=== PATIENT | male | born 1975 | race African-American/Black ===

== ENCOUNTER 2016-11-20 14:10 | Emergency (ER) | payer SELFPAY ==
[~2016-11-20] VITALS: Ht 177.8 cm; Wt 113.0 kg
[2016-11-20] MEDS ORDERED: SODIUM CHLORIDE 0.9% 1,000 ML IV ONE (14:29)
[2016-11-20] MEDS ORDERED: LORAZEPAM 2MG/ML CPJ IV ONE (14:30)
[2016-11-20 14:32] VITALS: BP 152/92
[2016-11-20] MEDS ORDERED: MIDAZOLAM HCL 2 MG/2 ML VIAL IM ONE (14:45)
== END 2016-11-20 15:15 | disposition left against medical advice (07) ==
LOC: ER 14:17
DX: G93.40 Encephalopathy, unspecified (principal); Z53.21 Procedure and treatment not carried out due to patient leaving prior to being seen by health care provider
CPT/HCPCS: 93005; 99283; J2060; J7030

== ENCOUNTER 2018-05-07 01:38 | Inpatient (IN) | payer MEDICAID, OTHER ==
[2018-05-07] VITALS (22 sets, daily range): BP systolic 92–150; BP diastolic 65–121
[~2018-05-07] VITALS: Ht 180.3 cm; Wt 128.4 kg
[2018-05-07] MEDS ORDERED: SODIUM CHLORIDE 0.9% 1,000 ML IV ONE ×4 (02:45→03:45)
[2018-05-07 02:52] LABS: HEMATOCRIT. 54.6 % (42.0-52.0); HEMOGLOBIN. 16.7 g/dL (14.0-18.0); MEAN CORPUSCULAR HEMOGLOBIN 27.1 pg (28.0-32.0); MEAN CORPUSCULAR VOLUME 88.6 fL (80.0-94.0); MEAN PLATELET VOLUME 11.7 fl (7.4-10.4); PLATELET 269 x1000/uL (130-400); RED BLOOD CELL COUNT 6.16 mill/uL (4.7-6.1); RED CELL DISTRIBUTION WIDTH 15.9 % (11.6-14.6)
[2018-05-07 02:56] LABS: CHLORIDE 100 mEq/L (98-107)
[2018-05-07 03:00] LABS: ETHANOL BLOOD < 10 mg/dL
[2018-05-07 03:05] LABS: CREATINE KINASE 112 IU/L (39-308)
[2018-05-07 03:07] LABS: CREATINE KINASE MB FRACTION < 1.0 ng/mL (0.5-3.6)
[2018-05-07] MEDS ORDERED: INSULIN REGULAR (DRIP) 100 UNITS in SODIUM CHLORIDE 0.9% 100 ML IV ONE (03:30)
[2018-05-07] MEDS ORDERED: INSULIN REGULAR (DRIP) 100 UNITS in SODIUM CHLORIDE 0.9% 100 ML IV NR (03:30)
[2018-05-07 03:41] LABS: CLARITY URINE CLEAR (CLEAR); COLOR URINE YELLOW (YELLOW); KETONES URINE 1+ (NEGATIVE); LEUKOCYTE ESTERASE URINE NEGATIVE (NEGATIVE); NITRITE URINE NEGATIVE (NEGATIVE); OCCULT BLOOD URINE 1+ (NEGATIVE); PROTEIN URINE 1+ (NEGATIVE); SPECIFIC GRAVITY URINE 1.026 (1.005-1.030); UROBILINOGEN URINE 0.2 E.U./dL (0.2-1.0)
[2018-05-07 04:39] LABS: BETA HYDROXYBUTYRATE 11.4 mMol/L (0.0-0.3)
[2018-05-07 04:39] LABS: *BARBITURATES SCREEN URINE NEGATIVE (NEGATIVE); *BENZODIAZEPINES SCREEN URINE NEGATIVE (NEGATIVE)
[2018-05-07 04:40] LABS: *COCAINE SCREEN URINE NEGATIVE (NEGATIVE)
[2018-05-07 05:10] LABS: METHADONE URINE SCREEN NEGATIVE (NEGATIVE); OPIATES URINE SCREEN NEGATIVE (NEGATIVE)
[2018-05-07 05:11] LABS: *AMPHETAMINES SCREEN URINE NEGATIVE (NEGATIVE); CANNABINOID URINE SCREEN PRESUMTIVE POSITIVE (NEGATIVE); PHENCYCLIDINE URINE SCREEN PRESUMTIVE POSITIVE (NEGATIVE)
[2018-05-07 05:14] LABS: PLATELET ESTIMATE NORMAL
[2018-05-07] MEDS ORDERED: DEXTROSE 50% WATER 50ML SYRINGE IV PRN ×2 (05:45)
[2018-05-07] MEDS ORDERED: ZOSYN PER PHARMACY XX SCH (06:15)
[2018-05-07] MEDS: SODIUM CHLORIDE 0.9% 1,000 ML IV SCH ×2 (06:43→10:57)
[2018-05-07] MEDS: BLOOD SUGAR DIAGNOSTIC STRIP TEST SCH ×17 (06:44→23:42)
[2018-05-07 08:14] LABS: BG BASE EXCESS -9.5 mmol/L (-2.0-2.0); BG CARBOXYHEMOGLOBIN 0.8 % (0.5-1.5); BG FRACTION INSPIRED OXYGEN 21; BG HCO3 ACT 13.7 mmol/L (22.0-26.0); BG METHEMOGLOBIN 0.4 % (0.0-1.5); BG OXYHEMOGLOBIN 94.8 % (94.0-97.0); BG PCO2 25.1 mmHg (35.0-45.0); BG PH 7.355 (7.350-7.450); BG SAMPLE SITE RIGHT RADIAL; BG TOTAL HEMOGLOBIN 17.5 g/dL (12.0-18.0); BG VENT MODE ROOM AIR
[2018-05-07 09:25] LABS: PHOSPHORUS 1.5 mg/dL (2.5-4.9)
[2018-05-07] MEDS: ENOXAPARIN 30MG/0.3ML SYR SUBCUT SCH ×2 (09:51→20:17)
[2018-05-07] MEDS: INSULIN REGULAR (DRIP) 100 UNITS in SODIUM CHLORIDE 0.9% 99 ML IV SCH ×3 (10:49→20:52)
[2018-05-07] MEDS: PIPERACILLIN/TAZ 2.25G PREMIX 50 ML IV SCH ×4 (12:00→23:45)
[2018-05-07] MEDS ORDERED: SODIUM CHLORIDE 0.45% 1,000 ML IV SCH (12:00)
[2018-05-07] MEDS ORDERED: DEXT 5%/0.45% NACL KCL 20MEQ/L 1,000 ML IV SCH (17:30)
[2018-05-07] MEDS: DEXTROSE 5% WATER 1,000 ML IV SCH (22:24)
[2018-05-07] MEDS ORDERED: POTASSIUM CHLORIDE INJ 40 MEQ in DEXT 5% WATER 500 ML IV NR (22:30)
[2018-05-08] VITALS (46 sets, daily range): BP systolic 89–159; BP diastolic 46–107
[2018-05-08] MEDS: BLOOD SUGAR DIAGNOSTIC STRIP TEST SCH ×9 (00:50→22:00)
[2018-05-08] MEDS: PIPERACILLIN/TAZ 2.25G PREMIX 50 ML IV SCH ×4 (05:41→23:29)
[2018-05-08] MEDS: INSULIN REGULAR (DRIP) 100 UNITS in SODIUM CHLORIDE 0.9% 99 ML IV SCH (05:41)
[2018-05-08] MEDS: DEXTROSE 5% WATER 1,000 ML IV SCH (06:22)
[2018-05-08] MEDS: SODIUM CHLORIDE 0.45% 1,000 ML IV SCH ×2 (08:09→15:37)
[2018-05-08] MEDS: ENOXAPARIN 30MG/0.3ML SYR SUBCUT SCH ×2 (08:13→22:36)
[2018-05-08] MEDS ORDERED: DEXTROSE 50% WATER 50ML SYRINGE IV PRN (14:30)
[2018-05-08] MEDS: INSULIN LISPRO 100 UNITS/ML SUBCUT SCH ×2 (15:37→22:38)
[2018-05-08] MEDS ORDERED: POTASSIUM CHLORIDE INJ 40 MEQ in DEXT 5% WATER 250 ML IV ONE (16:00)
[2018-05-08] MEDS ORDERED: POTASSIUM CHLORIDE 20MEQ TABLET SR PO NR (18:00)
[2018-05-08] MEDS ORDERED: INSULIN GLARGINE UD 100 UNITS/ML SYR SUBCUT SCH (22:00)
[2018-05-09] VITALS (36 sets, daily range): BP systolic 97–165; BP diastolic 27–123
[2018-05-09] MEDS ORDERED: INSULIN GLARGINE UD 100 UNITS/ML SYR SUBCUT NR
[2018-05-09] MEDS: SODIUM CHLORIDE 0.45% 1,000 ML IV SCH ×2 (03:30→09:19)
[2018-05-09 06:19] LABS: BASOPHILS % 1.5 % (0.0-2.0); EOSINOPHILS % 4.3 % (0.0-5.0); HEMOGLOBIN. 14.3 g/dL (14.0-18.0); LYMPHOCYTES % 11.9 % (20.0-50.0); MEAN CORPUSCULAR HEMOGLOBIN 26.7 pg (28.0-32.0); MEAN CORPUSCULAR VOLUME 84.3 fL (80.0-94.0); MEAN PLATELET VOLUME 10.8 fl (7.4-10.4); MONOCYTES % 10.5 % (2.0-8.0); NEUTROPHILS % 71.8 % (40.0-76.0); PLATELET 128 x1000/uL (130-400); RED BLOOD CELL COUNT 5.34 mill/uL (4.7-6.1); RED CELL DISTRIBUTION WIDTH 15.5 % (11.6-14.6)
[2018-05-09] MEDS: BLOOD SUGAR DIAGNOSTIC STRIP TEST SCH ×11 (07:28→18:00)
[2018-05-09] MEDS ORDERED: DEXTROSE 50% WATER 50ML SYRINGE IV PRN ×2 (08:00)
[2018-05-09] MEDS: ENOXAPARIN 30MG/0.3ML SYR SUBCUT SCH ×2 (08:42→22:40)
[2018-05-09] MEDS: INSULIN REGULAR (DRIP) 100 UNITS in SODIUM CHLORIDE 0.9% 99 ML IV SCH ×3 (08:53→17:51)
[2018-05-09] MEDS: THIAMINE HCL 100MG TABLET PO SCH (08:58)
[2018-05-09] MEDS: FOLIC ACID 1MG TABLET PO SCH (08:58)
[2018-05-09] MEDS: MULTIVITAMINS,THER W-MINERALS TABLET PO SCH (08:58)
[2018-05-09 10:06] LABS: T4 FREE 0.79 ng/dL (0.76-1.46)
[2018-05-09] MEDS: INSULIN GLARGINE UD 100 UNITS/ML SYR SUBCUT SCH ×2 (11:10→22:41)
[2018-05-09] MEDS: PIPERACILLIN/TAZ 2.25G PREMIX 50 ML IV SCH ×2 (11:13→17:41)
[2018-05-09] MEDS ORDERED: LEVA15HF6 IH (13:16)
[2018-05-09] MEDS ORDERED: ARIP10TA16 PO (13:16)
[2018-05-09] MEDS ORDERED: FLUO1POW12 PO (13:16)
[2018-05-09] MEDS ORDERED: GLIP10TA10 PO (13:24)
[2018-05-09] MEDS ORDERED: FLUO-124 PO (13:24)
[2018-05-09] MEDS ORDERED: SIMV20TA6 PO (13:24)
[2018-05-09] MEDS ORDERED: FURO20TA4 PO (13:24)
[2018-05-09] MEDS ORDERED: METF-416 PO (13:24)
[2018-05-09 14:17] LABS: FOLIC ACID (FOLATE) SERUM 17.3 ng/mL (>5.38)
[2018-05-09] MEDS: DEXT 5%/0.45% NACL 1000ML 1,000 ML IV SCH (16:53)
[2018-05-10] VITALS (32 sets, daily range): BP systolic 105–183; BP diastolic 32–100
[2018-05-10] MEDS: PIPERACILLIN/TAZ 2.25G PREMIX 50 ML IV SCH ×4 (00:15→17:37)
[2018-05-10] MEDS: DEXT 5%/0.45% NACL 1000ML 1,000 ML IV SCH (03:00)
[2018-05-10] MEDS: INSULIN REGULAR (DRIP) 100 UNITS in SODIUM CHLORIDE 0.9% 99 ML IV SCH (05:26)
[2018-05-10] MEDS ORDERED: DEXTROSE 50% WATER 50ML SYRINGE IV PRN ×2 (10:15→12:30)
[2018-05-10] MEDS: FOLIC ACID 1MG TABLET PO SCH (10:55)
[2018-05-10] MEDS: THIAMINE HCL 100MG TABLET PO SCH (10:55)
[2018-05-10] MEDS: MULTIVITAMINS,THER W-MINERALS TABLET PO SCH (10:55)
[2018-05-10] MEDS: ENOXAPARIN 30MG/0.3ML SYR SUBCUT SCH ×2 (10:56→22:02)
[2018-05-10] MEDS: INSULIN GLARGINE UD 100 UNITS/ML SYR SUBCUT SCH ×2 (10:57→22:01)
[2018-05-10] MEDS ORDERED: BLOOD SUGAR DIAGNOSTIC STRIP TEST SCH (11:30)
[2018-05-10] MEDS ORDERED: INSULIN LISPRO 100 UNITS/ML SUBCUT SCH ×2 (12:00→12:30)
[2018-05-10] MEDS: BLOOD SUGAR DIAGNOSTIC STRIP TEST SCH ×3 (12:30→21:00)
[2018-05-10] MEDS ORDERED: DEXTROSE 5% WATER 1,000 ML IV SCH (12:45)
[2018-05-10] MEDS: INSULIN LISPRO 100 UNITS/ML SUBCUT SCH ×4 (12:55→22:08)
[2018-05-11] VITALS (41 sets, daily range): BP systolic 104–164; BP diastolic 50–109
[2018-05-11] MEDS: PIPERACILLIN/TAZ 2.25G PREMIX 50 ML IV SCH ×5 (00:16→23:50)
[2018-05-11] MEDS: INSULIN LISPRO 100 UNITS/ML SUBCUT SCH ×6 (06:51→21:09)
[2018-05-11] MEDS: BLOOD SUGAR DIAGNOSTIC STRIP TEST SCH ×4 (06:52→21:05)
[2018-05-11 07:08] LABS: CHLORIDE 121 mEq/L (98-107); HEMATOCRIT. 38.8 % (42.0-52.0); HEMOGLOBIN. 12.6 g/dL (14.0-18.0); MEAN CORPUSCULAR HEMOGLOBIN 27.2 pg (28.0-32.0); MEAN CORPUSCULAR VOLUME 83.9 fL (80.0-94.0); MEAN PLATELET VOLUME 10.8 fl (7.4-10.4); PLATELET 109 x1000/uL (130-400); RED BLOOD CELL COUNT 4.63 mill/uL (4.7-6.1); RED CELL DISTRIBUTION WIDTH 15.2 % (11.6-14.6)
[2018-05-11 07:15] LABS: PHOSPHORUS 3.5 mg/dL (2.5-4.9)
[2018-05-11] MEDS: THIAMINE HCL 100MG TABLET PO SCH (09:17)
[2018-05-11] MEDS: MULTIVITAMINS,THER W-MINERALS TABLET PO SCH (09:17)
[2018-05-11] MEDS: FOLIC ACID 1MG TABLET PO SCH (09:17)
[2018-05-11] MEDS: ENOXAPARIN 30MG/0.3ML SYR SUBCUT SCH ×2 (09:18→21:11)
[2018-05-11] MEDS: INSULIN GLARGINE UD 100 UNITS/ML SYR SUBCUT SCH (09:19)
[2018-05-11 12:55] LABS: PLATELET ESTIMATE SLIGHTLY DECREASED
[2018-05-11 13:41] LABS: CHLORIDE 121 mEq/L (98-107)
[2018-05-11] MEDS ORDERED: INSULIN LISPRO 100 UNITS/ML SUBCUT SCH (17:00)
[2018-05-11] MEDS ORDERED: INSULIN GLARGINE UD 100 UNITS/ML SYR SUBCUT SCH (22:00)
[2018-05-12] VITALS (8 sets, daily range): BP systolic 113–136; BP diastolic 60–80
[2018-05-12] MEDS: PIPERACILLIN/TAZ 2.25G PREMIX 50 ML IV SCH ×2 (05:36→13:05)
[2018-05-12 06:29] LABS: HEMATOCRIT. 37.3 % (42.0-52.0); HEMOGLOBIN. 12.1 g/dL (14.0-18.0); MEAN CORPUSCULAR HEMOGLOBIN 27.2 pg (28.0-32.0); MEAN CORPUSCULAR VOLUME 83.7 fL (80.0-94.0); MEAN PLATELET VOLUME 10.4 fl (7.4-10.4); PLATELET 87 x1000/uL (130-400); RED BLOOD CELL COUNT 4.46 mill/uL (4.7-6.1); RED CELL DISTRIBUTION WIDTH 15.4 % (11.6-14.6)
[2018-05-12] MEDS: BLOOD SUGAR DIAGNOSTIC STRIP TEST SCH ×4 (06:37→20:40)
[2018-05-12] MEDS: INSULIN LISPRO 100 UNITS/ML SUBCUT SCH ×7 (07:40→21:04)
[2018-05-12 08:08] LABS: CHLORIDE 117 mEq/L (98-107)
[2018-05-12] MEDS: ENOXAPARIN 30MG/0.3ML SYR SUBCUT SCH (09:00)
[2018-05-12] MEDS: FOLIC ACID 1MG TABLET PO SCH (10:00)
[2018-05-12] MEDS: MULTIVITAMINS,THER W-MINERALS TABLET PO SCH (10:00)
[2018-05-12] MEDS: LINAGLIPTIN 5MG TABLET PO SCH (10:01)
[2018-05-12] MEDS: THIAMINE HCL 100MG TABLET PO SCH (10:01)
[2018-05-12] MEDS: INSULIN GLARGINE UD 100 UNITS/ML SYR SUBCUT SCH ×2 (12:00→21:03)
[2018-05-12] MEDS ORDERED: POTASSIUM CHLORIDE 20MEQ/PACKET PO NR (13:00)
[2018-05-12 13:55] LABS: NUCLEATED RED BLOOD CELLS 2 /100 WBC; PLATELET ESTIMATE DECREASED
[2018-05-12 15:28] LABS: PHOSPHORUS 2.8 mg/dL (2.5-4.9)
[2018-05-12] MEDS: PIPERACILLIN/TAZ 3.375G PREMIX 50 ML IV SCH (21:03)
[2018-05-13] VITALS: BP 132/61
[2018-05-13 04:00] VITALS: BP 129/79
[2018-05-13] MEDS: INSULIN LISPRO 100 UNITS/ML SUBCUT SCH ×8 (07:20→21:45)
[2018-05-13] MEDS: BLOOD SUGAR DIAGNOSTIC STRIP TEST SCH ×4 (07:20→20:54)
[2018-05-13 08:00] VITALS: BP 128/78
[2018-05-13] MEDS: FOLIC ACID 1MG TABLET PO SCH (08:36)
[2018-05-13] MEDS: MULTIVITAMINS,THER W-MINERALS TABLET PO SCH (08:36)
[2018-05-13] MEDS: GLIMEPIRIDE 2MG TABLET PO SCH ×2 (08:36→18:24)
[2018-05-13] MEDS: LINAGLIPTIN 5MG TABLET PO SCH (08:36)
[2018-05-13] MEDS: THIAMINE HCL 100MG TABLET PO SCH (08:36)
[2018-05-13] MEDS: INSULIN GLARGINE UD 100 UNITS/ML SYR SUBCUT SCH ×2 (11:40→21:46)
[2018-05-13 12:00] VITALS: BP 138/66
[2018-05-13] MEDS: PIPERACILLIN/TAZ 3.375G PREMIX 50 ML IV SCH (14:29)
[2018-05-13 16:00] VITALS: BP 97/59
[2018-05-13] MEDS ORDERED: ACETAMINOPHEN 650MG/20.3ML UDC PO PRN (19:00)
[2018-05-13 20:00] VITALS: BP 104/51
[2018-05-14] VITALS: BP 123/66
[2018-05-14 04:00] VITALS: BP 120/54
[2018-05-14 06:05] LABS: HEMATOCRIT. 37.4 % (42.0-52.0); MEAN CORPUSCULAR HEMOGLOBIN 26.9 pg (28.0-32.0); MEAN CORPUSCULAR VOLUME 83.7 fL (80.0-94.0); MEAN PLATELET VOLUME 10.1 fl (7.4-10.4); PLATELET 104 x1000/uL (130-400); RED BLOOD CELL COUNT 4.47 mill/uL (4.7-6.1); RED CELL DISTRIBUTION WIDTH 14.9 % (11.6-14.6)
[2018-05-14 06:25] LABS: CHLORIDE 113 mEq/L (98-107)
[2018-05-14] MEDS: BLOOD SUGAR DIAGNOSTIC STRIP TEST SCH ×2 (07:20→13:07)
[2018-05-14 08:00] VITALS: BP 129/75
[2018-05-14] MEDS ORDERED: POTASSIUM CHLORIDE 20MEQ TABLET SR PO NR (08:15)
[2018-05-14] MEDS: MULTIVITAMINS,THER W-MINERALS TABLET PO SCH (08:41)
[2018-05-14] MEDS: GLIMEPIRIDE 2MG TABLET PO SCH (08:41)
[2018-05-14] MEDS: LINAGLIPTIN 5MG TABLET PO SCH (08:41)
[2018-05-14] MEDS: FOLIC ACID 1MG TABLET PO SCH (08:41)
[2018-05-14] MEDS: THIAMINE HCL 100MG TABLET PO SCH (08:41)
[2018-05-14] MEDS: INSULIN LISPRO 100 UNITS/ML SUBCUT SCH ×3 (08:55→13:12)
[2018-05-14] MEDS: INSULIN GLARGINE UD 100 UNITS/ML SYR SUBCUT SCH (10:48)
[2018-05-14] MEDS ORDERED: LINA5TAB PO (10:49)
[2018-05-14] MEDS ORDERED: LANTUSUD SUBCUT (10:49)
[2018-05-14] MEDS ORDERED: INSLIS SUBCUT (10:49)
[2018-05-14] MEDS ORDERED: AMA2 PO (10:49)
[2018-05-14 12:03] VITALS: BP 135/80
[2018-05-14 14:37] VITALS: BP 135/80
[2018-05-14 17:50] LABS: PLATELET ESTIMATE DECREASED
== END 2018-05-14 15:26 | disposition home or self-care (01) | DRG 52 ==
LOC: ER 01:38 → MICUNO 03:26 → EDBEDREQTM 03:28 → EDBEDREQ 03:28 → ENRESERV 03:34 → 6EST 05-12 01:26
PROVIDERS: ADMIT Internal Medicine; ATTEND Internal Medicine
PROC: 4A00X4Z Measurement of Central Nervous Electrical Activity, External Approach (ICD-10-PCS; principal; 2018-05-09)
DX: G92 Toxic encephalopathy (principal); N17.0 Acute kidney failure with tubular necrosis; E11.10 Type 2 diabetes mellitus with ketoacidosis without coma; D72.829 Elevated white blood cell count, unspecified; E87.0 Hyperosmolality and hypernatremia; E83.41 Hypermagnesemia; E66.01 Morbid (severe) obesity due to excess calories; E86.9 Volume depletion, unspecified; E87.5 Hyperkalemia; E87.6 Hypokalemia; I10 Essential (primary) hypertension; F16.10 Hallucinogen abuse, uncomplicated; F12.10 Cannabis abuse, uncomplicated; Y92.009 Unspecified place in unspecified non-institutional (private) residence as the place of occurrence of the external cause; Z78.1 Physical restraint status; Z71.3 Dietary counseling and surveillance; Z68.39 Body mass index [BMI] 39.0-39.9, adult
CPT/HCPCS: 36415; 36600; 70551; 71045; 76770; 80048; 80061; 80305; 82010; 82140; 82375; 82550; 82553; 82607; 82746; 82805; 82962; 83036; 83519; 83605; 83735; 83930; 84100; 84439; 84443; 84481; 84484; 84681; 92610; 93005; 93970; 96361; 96374; 99291; G0482; J1650; J1815; J2543; J3480; J7030; J7040; J7050; J7060; J7070; A4315

== ENCOUNTER 2021-01-04 10:24 | Emergency (ER) | payer MEDICAID ==
[~2021-01-04] VITALS: Ht 177.8 cm; Wt 91.0 kg
[~2021-01-04 10:24] MED LIST: AMA2 PO; ARIP10TA56 PO; FLUO20CA39 PO; FURO20TA4 PO; INSLIS SUBCUT; LANTUSUD SUBCUT; LEVA15HF6 IH; LINA5TAB PO
[2021-01-04] MEDS: TETANUS, DIPHTHERIA, PERTUSSIS VAC/PF 0.5ML (>10YR OLD) IM ONE ×2 (10:45→11:52)
[2021-01-04] MEDS ORDERED: NEOMY SULF/BACITRAC ZN/POLY OINT 28GM TOP SCH (12:00)
[2021-01-04] MEDS ORDERED: IBUP-2029 MT (12:00)
[2021-01-04 15:00] VITALS: BP 133/93
== END 2021-01-04 15:15 | disposition home or self-care (01) ==
LOC: ER 10:29
DX: S93.402A Sprain of unspecified ligament of left ankle, initial encounter (principal); I10 Essential (primary) hypertension; E11.9 Type 2 diabetes mellitus without complications; Z79.899 Other long term (current) drug therapy; X58.XXXA Exposure to other specified factors, initial encounter; Y93.89 Activity, other specified; Y92.89 Other specified places as the place of occurrence of the external cause; Y99.8 Other external cause status
CPT/HCPCS: 29505; 73590; 73610; 90715; 99284